=== PATIENT | male | born 1980 | race Caucasian/White ===

== ENCOUNTER 2020-08-07 07:26 | Emergency (ER) | payer BC, MEDICAID ==
[~2020-08-07] VITALS: Ht 190.5 cm; Wt 71.5 kg
[2020-08-07 07:30] VITALS: BP 144/75
--- NOTE | 2020-08-07 08:31 | NUR ---
PT C/O THE LAST 2 DAYS PT STATES HAS HAD "SNAPPING A POPPING" FEELING IN SHOES AND COAT AND PANTS. STATES THAT THE HEAT EFFECTS. PT STATES FELLS TINY SMALL SCAB THAT COMES OFF WHEN RUNS HIS HANDS UNDER HOT WATER. PT STATES HAS TO FORCE OUT URINE. ALSO.
--- NOTE | 2020-08-07 08:40 | NUR ---
PT HOOKED UP TO VITALS AFTER URINE COLLECTION, BED RAILS UP X2 CALL REMOTE WITHIN REACH.
[2020-08-07 08:51] LABS: MICROSCOPIC NOT IND
--- NOTE | 2020-08-07 09:01 | NUR ---
REPORT FROM ALVAREZ EDWARDS FOR TRANSFER OF PATIENT CARE.
--- NOTE | 2020-08-07 09:49 | NUR ---
Patient given discharge instructions and prescription and they have confirmed that they understand the instructions. Patient ambulatory with steady gait. NAD, all questions answered appropriately, denies additional needs at this time. No personal belongings left in room after discharge.
== END 2020-08-07 09:50 | disposition home or self-care (01) ==
LOC: ED 08:52
DX: F15.90 Other stimulant use, unspecified, uncomplicated (principal)
CPT/HCPCS: 81003; 99283; Q0177

== ENCOUNTER 2020-08-08 11:46 | Emergency (ER) | payer MEDICAID ==
[~2020-08-08] VITALS: Ht 188 cm; Wt 85.0 kg
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
[2020-08-08 12:30] LABS: BASOPHILS % (AUTO) 1 % (0-1); EOSINOPHILS % (AUTO) 0 % (1-7); LYMPHOCYTES % (AUTO) 13 % (22-44); MEAN CORPUSCULAR HEMOGLOBIN 30.3 pg (27.5-34.5); MEAN CORPUSCULAR HGB CONC 33.9 g/dL (33.2-36.2); MEAN PLATELET VOLUME 8.7 fL (7.4-10.4); MONOCYTES % (AUTO) 6 % (2-9); NEUTROPHILS % (AUTO) 80 % (42-75); PLATELET COUNT 297 x10^3/uL (130-400); RED BLOOD COUNT 4.72 x10^6/uL (4.38-5.82); RED CELL DISTRIBUTION WIDTH 12.6 % (9.4-14.8)
[2020-08-08 12:41] LABS: ALBUMIN 4.1 g/dL (3.4-5.0); ANION GAP 7 mmol/L (5-15); CALCIUM 9.7 mg/dL (8.5-10.1); CHLORIDE 109 mmol/L (98-107)
[2020-08-08 12:42] LABS: SALICYLATE LEVEL < 1.7 mg/dL (2.8-20.0)
[2020-08-08 12:44] LABS: ALANINE AMINOTRANSFERASE 28 U/L (12-78); ALKALINE PHOSPHATASE 76 U/L (45-117); BILIRUBIN,TOTAL 1.1 mg/dL (0.2-1.0); CREATININE 1.29 mg/dL (0.7-1.3); TOTAL PROTEIN 7.9 g/dL (6.4-8.2)
--- NOTE | 2020-08-08 12:48 | NUR ---
WARMING MEASURES IN PLACE.
[2020-08-08] MEDS ORDERED: SODIUM CHLORIDE 0.9% 1,000ML IVBOLUS ONE (13:00)
--- NOTE | 2020-08-08 15:03 | NUR ---
PT SLEEPING IN NAD, VSS, TEMPERATURE IMPROVING.
[2020-08-08 15:47] VITALS: BP 110/66
--- NOTE | 2020-08-08 15:50 | NUR ---
MARCIO COOK AT BEDSIDE TO DISCUSS POC.
--- NOTE | 2020-08-08 16:45 | NUR ---
PT TAKING WARM SHOWER.
--- NOTE | 2020-08-08 17:12 | NUR ---
PT STILL IN SHOWER, SECURITY CALLED PT UNCOOPERATIVE.
== END 2020-08-08 18:05 | disposition home or self-care (01) ==
LOC: ED 12:45
DX: T68.XXXA Hypothermia, initial encounter (principal); R00.1 Bradycardia, unspecified; L29.9 Pruritus, unspecified; F15.10 Other stimulant abuse, uncomplicated; R45.1 Restlessness and agitation; X31.XXXA Exposure to excessive natural cold, initial encounter
CPT/HCPCS: 36415; 80053; 80299; 80320; 85025; 93005; 96360; 99285; J7030; Q0177; 80329; G0480